=== PATIENT | male | born 1940 | race Caucasian/White ===

== ENCOUNTER 2024-03-01 16:03 | Inpatient (IN) | payer MEDICARE ==
[~2024-03-01] VITALS: Ht 172.7 cm; Wt 86.2 kg
[2024-03-01 16:13] VITALS: BP 147/65
[2024-03-01 16:37] LABS: BASO % 0.4 % (0.0-1.0); EOS # 0.4 10*3/uL (0.0-0.4); HEMATOCRIT 39.2 % (42.0-52.0); LYMPH # 1.8 10*3/uL (1.3-4.4); LYMPH % 18.6 % (27.0-41.0); MEAN CELL VOLUME 94.2 fl (80.0-94.0); MEAN CORPUSCULAR HGB 31.3 pg (27.0-31.0); MEAN CORPUSCULAR HGB CONC 33.2 g/dl (33.0-37.0); MEAN PLATELET VOLUME 9.7 fl (9.6-12.3); MONO # 0.9 10*3/uL (0.1-1.0); MONO % 9.3 % (3.0-9.0); NEUT # 6.6 10*3/uL (2.3-7.9); NEUT % 67.4 % (47.0-73.0); PLATELET COUNT AUTOMATED 198 10*3/uL (130-400); RED BLOOD COUNT 4.16 10*6/uL (4.50-5.90); RED CELL DISTRI WIDTH 13.1 % (0-14.5); WHITE BLOOD COUNT 9.8 10*3/uL (4.8-10.8)
[2024-03-01 16:39] LABS: BILIRUBIN Negative (Negative); BLOOD Negative (Negative); CLARITY Clear (Clear); COLOR Yellow (Yellow); GLUCOSE Negative (Negative); KETONE Negative (Negative); LEUKO ESTERASE Negative (Negative); NITRITE Negative (Negative); SPECIFIC GRAVITY 1.015 (1.001-1.030)
[2024-03-01 16:49] LABS: EPITHELIAL CELLS 0-2; WBC 0-2 wbc/hpf (0-5)
[2024-03-01 16:58] LABS: BUN 13 mg/dl (9-23); CHLORIDE 109 mmol/L (98-107); POTASSIUM 3.8 mmol/L (3.4-5.1)
[2024-03-01] MEDS ORDERED: PRAVASTATIN SOD40 MG PO (17:29)
[2024-03-01] MEDS ORDERED: LISINOPRIL5 MG PO (17:29)
[2024-03-01] MEDS ORDERED: RISPERIDONE0.5 MG PO (17:40)
[2024-03-01] MEDS ORDERED: MELATONIN 3 MG1 EACH PO (17:41)
[2024-03-01] MEDS ORDERED: VITAMIN D350 MC2 PO (17:42)
[2024-03-01 18:01] LABS: URINE AMPHETAMINES Negative (1000ng/ml); URINE BARBITURATES Negative (200ng/ml); URINE BENZODIAZEPINES Negative (200ng/ml); URINE CANNABINOIDS (THC) Negative (50ng/ml); URINE COCAINE Negative (300ng/ml); URINE METHADONE Negative (300ng/ml); URINE OPIATES Negative (300ng/ml); URINE PHENCYCLIDINE Negative (25ng/ml)
[2024-03-01 18:04] LABS: ACT PARTIAL THROMBO TIME 26.6 SECONDS (20.0-32.1)
[2024-03-01 18:18] LABS: CPK 565 U/L (34-171); ETHYL ALCOHOL < 3.0 mg/dl (<3)
[2024-03-01 20:33] VITALS: BP 142/56
[2024-03-01] MEDS ORDERED: ASPIRIN CHEWABL81 MG PO (21:36)
[2024-03-01] MEDS ORDERED: Ziprasidone Mesylate 20 MG VIAL IM PRN (21:45)
[2024-03-01] MEDS ORDERED: LORazepam 2 MG/ML VIAL IM PRN (21:45)
[2024-03-01] MEDS ORDERED: LORazepam 1 MG TAB PO PRN (21:45)
[2024-03-01] MEDS ORDERED: Water, Sterile 10 ML VIAL IM PRN (21:50)
[2024-03-01 22:12] VITALS: BP 142/56
[2024-03-01] MEDS ORDERED: MG-AL HYDROXIDE/SIMETICONE 30 ML UDC PO PRN (23:50)
[2024-03-01] MEDS ORDERED: Magnesium Hydroxide 30 ML UDC PO PRN (23:50)
[2024-03-02 06:33] LABS: BASO % 0.4 % (0.0-1.0); EOS # 0.4 10*3/uL (0.0-0.4); EOS % 4.7 % (1.0-4.0); HEMATOCRIT 42.1 % (42.0-52.0); LYMPH # 1.7 10*3/uL (1.3-4.4); LYMPH % 18.3 % (27.0-41.0); MEAN CELL VOLUME 94.8 fl (80.0-94.0); MEAN CORPUSCULAR HGB 31.1 pg (27.0-31.0); MEAN CORPUSCULAR HGB CONC 32.8 g/dl (33.0-37.0); MEAN PLATELET VOLUME 9.6 fl (9.6-12.3); MONO # 0.8 10*3/uL (0.1-1.0); MONO % 8.2 % (3.0-9.0); NEUT # 6.3 10*3/uL (2.3-7.9); NEUT % 68.1 % (47.0-73.0); PLATELET COUNT AUTOMATED 199 10*3/uL (130-400); RED BLOOD COUNT 4.44 10*6/uL (4.50-5.90); RED CELL DISTRI WIDTH 12.9 % (0-14.5); WHITE BLOOD COUNT 9.2 10*3/uL (4.8-10.8)
[2024-03-02 07:04] LABS: ALKALINE PHOSPHATASE 57 U/L (46-116); BUN 8 mg/dl (9-23); CHLORIDE 107 mmol/L (98-107); CHOLESTEROL 122 mg/dL (<200); LDL CHOLESTEROL 62 mg/dL (9-159); POTASSIUM 4.1 mmol/L (3.4-5.1); SGPT/ALT 20 U/L (5-49); TOTAL PROTEIN 6.6 gm/dL (6.0-8.0); TRIGLYCERIDES 57 mg/dl (<150)
[2024-03-02 07:31] LABS: VITAMIN D, 25-HYDROXY 59.3 ng/mL (30-100)
[2024-03-02 07:57] VITALS: BP 135/80
[2024-03-02] MEDS ORDERED: Cholecalciferol 2,000 UNIT TABLET (50 MCG) PO SCH (09:00)
[2024-03-02] MEDS ORDERED: Rivastigmine Tartrate 4.6 MG/24 HR PATCH T SCH (09:00)
[2024-03-02] MEDS ORDERED: RISPERIDONE 0.5 MG TAB PO SCH (09:00)
[2024-03-02] MEDS ORDERED: ASPIRIN, CHEWABLE 81 MG TAB PO SCH (09:00)
[2024-03-02 20:00] VITALS: BP 138/64
[2024-03-02] MEDS ORDERED: Mirtazapine 15 MG TAB PO SCH (21:00)
[2024-03-02] MEDS ORDERED: Memantine Hydrochloride 5 MG TAB PO SCH (21:00)
[2024-03-02] MEDS ORDERED: RISPERIDONE 1 MG TAB PO SCH (21:00)
[2024-03-02] MEDS ORDERED: ATORVASTATIN CALCIUM 10 MG TAB PO SCH (22:00)
[2024-03-03 07:53] VITALS: BP 147/74
[2024-03-03] MEDS ORDERED: PRAVASTATIN SODIUM 40 MG TAB PO SCH (10:00)
[2024-03-03] MEDS ORDERED: LISINOPRIL 5 MG TAB PO SCH (10:00)
[2024-03-03 20:00] VITALS: BP 118/63
[2024-03-04 08:00] VITALS: BP 166/76
[2024-03-04 20:00] VITALS: BP 107/57
[2024-03-04] MEDS ORDERED: Memantine Hydrochloride 5 MG TAB PO SCH (21:00)
[2024-03-05] MEDS ORDERED: Rivastigmine Tartrate 9.5 MG/24 HR PATCH T SCH (09:00)
[2024-03-05 09:04] VITALS: BP 132/69
[2024-03-05 20:00] VITALS: BP 114/55
[2024-03-05] MEDS ORDERED: Memantine Hydrochloride 10 MG TAB PO SCH (21:00)
[2024-03-06 08:30] VITALS: BP 133/64
[2024-03-06] MEDS ORDERED: Memantine Hydrochloride 5 MG TAB PO SCH (09:00)
[2024-03-06 20:00] VITALS: BP 101/52
[2024-03-07 07:50] VITALS: BP 144/59
[2024-03-07] MEDS ORDERED: RIVASTIGMINE 13.3 MG/24 HR TDM T SCH (09:05)
[2024-03-07 20:00] VITALS: BP 125/58
[2024-03-08 08:00] VITALS: BP 146/71
[2024-03-08 20:00] VITALS: BP 103/57
[2024-03-08] MEDS ORDERED: Memantine Hydrochloride 10 MG TAB PO SCH (21:00)
[2024-03-09 08:00] VITALS: BP 163/69
[2024-03-09 10:33] VITALS: BP 118/58
[2024-03-09 20:00] VITALS: BP 126/58
[2024-03-10] MEDS ORDERED: RISPERDAL1 M1 PO (07:58)
[2024-03-10] MEDS ORDERED: RIVASTIGMINE1 EAC2 T (07:58)
[2024-03-10] MEDS ORDERED: MIRTAZAPINE15 M2 PO (07:58)
[2024-03-10] MEDS ORDERED: MEMANTINE HCL10 MG PO (07:58)
[2024-03-10 08:21] VITALS: BP 158/90
== END 2024-03-10 12:10 | DRG 885 ==
LOC: ED 16:03 → 3N 19:13 → EDHOLD 19:13 → 3N 19:40
PROVIDERS: Internal Medicine; ADMIT Psychiatry & Neurology Psychiatry; ATTEND Psychiatry & Neurology Psychiatry
PROC: GZHZZZZ Group Psychotherapy (ICD-10-PCS; principal; 2024-03-08)
PROC: GZ52ZZZ Individual Psychotherapy, Cognitive (ICD-10-PCS; 2024-03-08)
PROC: GZ56ZZZ Individual Psychotherapy, Supportive (ICD-10-PCS; 2024-03-08)
DX: F23 Brief psychotic disorder (principal); F33.3 Major depressive disorder, recurrent, severe with psychotic symptoms; G30.9 Alzheimer's disease, unspecified; F02.80 Dementia in other diseases classified elsewhere, unspecified severity, without behavioral disturbance, psychotic disturbance, mood disturbance, and anxiety; E78.5 Hyperlipidemia, unspecified; I10 Essential (primary) hypertension; Z66 Do not resuscitate; Z51.5 Encounter for palliative care; Z88.6 Allergy status to analgesic agent; Z00.8 Encounter for other general examination